=== PATIENT | male | born 1955 | race Caucasian/White ===

== ENCOUNTER → 2020-08-11 | Outpatient (CLI) | payer BC, MEDICARE ==
[~2020-08-11] MED LIST: LISI20TA2 PO
--- NOTE | 2020-08-11 09:01 | Diagnostic Imaging Report ---
HISTORY: Left foot pain. TECHNIQUE: 3 views of the left foot. COMPARISON: None FINDINGS: No acute fracture or dislocation is seen in the left foot. There is subtle cortical thickening of the 2nd metatarsal shaft. Alignment appears normal. There are mild degenerative changes in the 1st toe metatarsophalangeal joint. No cortical erosions are seen. There is a small plantar calcaneal enthesophyte. There is a small os supranaviculare. IMPRESSION: 1. Subtle cortical thickening of the 2nd metatarsal shaft. If pain localizes to this region, this could represent a stress response. MRI could be considered for further evaluation. 2. Mild degenerative change at the 1st MTP joint. Dictated by: Dictated on workstation # [id number]
== END ==
LOC: RAD 08:21
DX: M19.072 Primary osteoarthritis, left ankle and foot (principal)
CPT/HCPCS: 73630

== ENCOUNTER → 2020-08-25 | Outpatient (CLI) | payer MEDICARE ==
--- NOTE | 2020-08-25 15:40 | Diagnostic Imaging Report ---
PROCEDURE: MR imaging left lower extremity without contrast. TECHNIQUE: Multiplanar, multisequence non contrast enhanced MR imaging of the left forefoot was accomplished. INDICATION: Pain in left foot. FINDINGS: Bones: No bone marrow edema within the phalanges or metatarsals to indicate fracture. No marrow replacing process, osteitis or erosions. Soft tissues: There is small amount of fluid in the first and second intermetatarsal spaces that could represent mild bursitis. No intermetatarsal mass to suggest neuroma. The flexor digitorum brevis and longus tendons in the second toe are intact. No nodular thickening of plantar fascia to indicate fibromatosis. Lisfranc ligamentous complex is intact. IMPRESSION: 1. Bursitis is present in the first and second intermetatarsal spaces. 2. No Hart's neuroma. 3. No fracture or stress fracture. Dictated by: Dictated on workstation # [id number]
== END ==
LOC: RAD 11:00
DX: M77.52 Other enthesopathy of left foot and ankle (principal)

== ENCOUNTER 2021-05-16 11:13 | Outpatient (RCR) | payer MEDICARE | END 2021-07-22 | disposition home or self-care (01) | DX: M25.511 Pain in right shoulder (principal); K21.9 Gastro-esophageal reflux disease without esophagitis ==